=== PATIENT | female | born 1955 | race Caucasian/White ===

== ENCOUNTER 2016-10-23 08:15 | Outpatient (CLI) | payer OTHER ==
[2016-10-23 09:27] LABS: ALT (SGPT) 14 U/L (0-55); AST (SGOT) 18 U/L (5-34); Albumin 3.8 g/dL (3.5-5.0); Alkaline Phosphatase 77 U/L (40-150); Anion Gap 14 mmol/L (10-20); BUN (Urea Nitrogen) 12 mg/dL (9.8-20.1); Bilirubin, Total 0.6 mg/dL (0.2-1.2); Calc. Creatinine Clearance 0 mL/min (70-130); Calcium 9.1 mg/dL (7.8-10.44); Carbon Dioxide 27 mmol/L (22-29); Cardiac Risk 4.5 (Less than 4.5); Chloride 100 mmol/L (98-107); Cholesterol 262 mg/dL (< 200 Desired); Estimated GFR-MDRD 78; Globulin 3.4 g/dL (2.4-3.5); Glucose 97 mg/dL (70-105); HDL Cholesterol 58 mg/dL (>60 Neg Risk); LDL Cholesterol, Calculated 182 mg/dL; Potassium 3.5 mmol/L (3.5-5.1); Protein, Total 7.2 g/dL (6.0-8.3); Sodium 137 mmol/L (136-145); Triglycerides 112 mg/dL (Less than 150)
[2016-10-23 09:42] LABS: Free T4 (Free Thyroxine) 0.93 ng/dL (0.70-1.48); Thyroid Stimulating Hormone 0.772 uIU/mL (0.35-4.94)
== END 2016-10-23 08:16 | disposition home or self-care (01) ==
LOC: MADLABBHPM 08:15
PROVIDERS: ATTEND Family Medicine
DX: E78.5 Hyperlipidemia, unspecified (principal)
CPT/HCPCS: 36415; 80053; 80061; 84439; 84443

== ENCOUNTER 2016-11-06 09:35 | Emergency (ER) | payer OTHER ==
[2016-11-06 10:18] LABS: #Basophils 0.1 thou/uL (0.0-0.2); #Eosinphils 0.1 thou/uL (0.0-0.7); #Lymphocytes 2.3 thou/uL (1.20-3.40); #Monocytes 0.5 thou/uL (0.11-0.59); #Neutrophils 5.5 thou/uL (1.40-6.50); %Basophils 1.2 % (0.0-1.0); %Eosinophils 1.8 % (0.0-10.0); %Lymphocytes 26.8 % (21.0-51.0); %Monocytes 5.7 % (0.0-10.0); %Neutrophils 64.6 % (42.0-75.0); Hemoglobin 15.3 g/dL (12.0-16.0); Mean Corpuscular HGB CONC 33.7 g/dL (32.0-36.0); Mean Corpuscular Hemoglobin 33.6 pg (27.0-31.0); Mean Corpuscular Volume 99.9 fl (81.0-99.0); Mean Platelet Volume 9.6 fL (7.4-10.4); Platelet Count 266 thou/uL (130-400); RBC Distribution Width 12.5 % (11.5-14.5); Red Blood Cell (RBC) Count 4.56 mill/uL (4.20-5.40); White Blood Cell (WBC) Count 8.5 thou/uL (4.8-10.8)
[2016-11-06 10:33] LABS: ALT (SGPT) 12 U/L (0-55); AST (SGOT) 18 U/L (5-34); Albumin 4.1 g/dL (3.5-5.0); Alkaline Phosphatase 75 U/L (40-150); Anion Gap 14 mmol/L (10-20); BUN (Urea Nitrogen) 10 mg/dL (9.8-20.1); Bilirubin, Total 0.7 mg/dL (0.2-1.2); Calc. Creatinine Clearance 0 mL/min (70-130); Calcium 9.2 mg/dL (7.8-10.44); Carbon Dioxide 27 mmol/L (22-29); Chloride 103 mmol/L (98-107); Estimated GFR-MDRD 74; Globulin 3.3 g/dL (2.4-3.5); Glucose 97 mg/dL (70-105); Potassium 3.9 mmol/L (3.5-5.1); Protein, Total 7.4 g/dL (6.0-8.3); Sodium 140 mmol/L (136-145)
[2016-11-06 10:36] LABS: CKMB 1.2 ng/mL (0-6.6); Troponin I Less than 0.010 ng/mL (< 0.028)
[2016-11-06] MEDS ORDERED: Lisinopril 10 MG TAB ONE (11:21)
== END 2016-11-06 14:35 | disposition home or self-care (01) ==
LOC: MADERS 09:35
DX: I10 Essential (primary) hypertension (principal); E78.5 Hyperlipidemia, unspecified; K21.9 Gastro-esophageal reflux disease without esophagitis; F41.9 Anxiety disorder, unspecified; F32.9 Major depressive disorder, single episode, unspecified; Z79.899 Other long term (current) drug therapy
CPT/HCPCS: 36415; 80053; 82553; 84484; 85025; 93005

== ENCOUNTER 2016-11-10 10:01 | Outpatient (CLI) | payer OTHER ==
--- NOTE | 2016-11-10 12:35 | RAD ---
AP PELVIS: HISTORY: Fall. Hip and pelvic pain. FINDINGS/IMPRESSION: Degenerative changes are seen in the hip joints bilaterally. No definite fracture or dislocation is seen. If there is high clinical suspicion for a fracture, further evaluation with CT scan should be perfor med. POS: [facility]
--- NOTE | 2016-11-10 13:26 | RAD ---
RIGHT HIP TWO VIEWS CLINICAL HISTORY: Atraumatic pain. COMPARISON: Reference made to 01/21/2012. FINDINGS: Relatively stable osteoarthritis of the right hip present, without acute fracture or dislocation. IMPRESSION: No acute osseous abnormality of the right hip. Exam is stable from 01/21/2012. POS: [facility]
== END 2016-11-10 10:02 | disposition home or self-care (01) ==
LOC: MADRAD 10:01
PROVIDERS: ATTEND Family Medicine
DX: M25.551 Pain in right hip (principal)
CPT/HCPCS: 72170

== ENCOUNTER 2017-04-28 10:28 | Outpatient (CLI) | payer OTHER ==
[2017-04-28 10:59] LABS: #Basophils 0.1 thou/uL (0.0-0.2); #Eosinphils 0.2 thou/uL (0.0-0.7); #Lymphocytes 2.6 thou/uL (1.20-3.40); #Monocytes 0.6 thou/uL (0.11-0.59); #Neutrophils 4.2 thou/uL (1.40-6.50); %Basophils 1.4 % (0.0-1.0); %Eosinophils 2.5 % (0.0-10.0); %Lymphocytes 33.3 % (21.0-51.0); %Monocytes 7.7 % (0.0-10.0); %Neutrophils 55.1 % (42.0-75.0); Hemoglobin 15.7 g/dL (12.0-16.0); Mean Corpuscular HGB CONC 31.7 g/dL (32.0-36.0); Mean Corpuscular Hemoglobin 32.1 pg (27.0-31.0); Mean Corpuscular Volume 101.2 fl (81.0-99.0); Mean Platelet Volume 9.8 fL (7.4-10.4); Platelet Count 289 thou/uL (130-400); RBC Distribution Width 12.9 % (11.5-14.5); Red Blood Cell (RBC) Count 4.88 mill/uL (4.20-5.40); White Blood Cell (WBC) Count 7.7 thou/uL (4.8-10.8)
[2017-04-28 11:06] LABS: Hemoglobin A1c 4.9 % (4.0-6.0)
[2017-04-28 11:17] LABS: ALT (SGPT) 12 U/L (8-55); AST (SGOT) 16 U/L (5-34); Alkaline Phosphatase 79 U/L (40-150); Anion Gap 14 mmol/L (10-20); BUN (Urea Nitrogen) 15 mg/dL (9.8-20.1); Bilirubin, Total 0.4 mg/dL (0.2-1.2); Calc. Creatinine Clearance 0 mL/min (70-130); Calcium 9.4 mg/dL (7.8-10.44); Carbon Dioxide 29 mmol/L (22-29); Chloride 102 mmol/L (98-107); Estimated GFR-MDRD 68; Globulin 3.9 g/dL (2.4-3.5); Glucose 80 mg/dL (70-105); Potassium 3.6 mmol/L (3.5-5.1); Protein, Total 7.9 g/dL (6.0-8.3); Sodium 141 mmol/L (136-145)
[2017-04-28 11:37] LABS: Free T4 (Free Thyroxine) 0.94 ng/dL (0.70-1.48); Thyroid Stimulating Hormone 0.8205 uIU/mL (0.35-4.94)
== END 2017-04-28 10:29 | disposition home or self-care (01) ==
LOC: MADLABBHPM 10:28
PROVIDERS: ATTEND Family Medicine
DX: R53.82 Chronic fatigue, unspecified (principal)
CPT/HCPCS: 36415; 80053; 83036; 84439; 84443; 85025

== ENCOUNTER 2017-12-01 12:10 | Emergency (ER) | payer OTHER ==
[~2017-12-01 12:10] MED LIST: Iopamidol 370 76% 125 ML VIAL FS ONE
[2017-12-01] MEDS ORDERED: methylPREDNISolone Sod Succ/PF 125 MG/2 ML VIAL ONE (12:27)
[2017-12-01] MEDS ORDERED: cefTRIAXone\\ROCEPHIN 2 GM VIAL ONE (12:27)
[2017-12-01 12:40] LABS: #Basophils 0.1 thou/uL (0.0-0.2); #Eosinphils 0.1 thou/uL (0.0-0.7); #Lymphocytes 2.2 thou/uL (1.20-3.40); #Monocytes 0.6 thou/uL (0.11-0.59); %Basophils 1.1 % (0.0-1.0); %Eosinophils 0.7 % (0.0-10.0); %Lymphocytes 24.9 % (21.0-51.0); %Monocytes 6.3 % (0.0-10.0); Hemoglobin 16.1 g/dL (12.0-16.0); Mean Corpuscular HGB CONC 33.1 g/dL (32.0-36.0); Mean Corpuscular Hemoglobin 31.2 pg (27.0-31.0); Platelet Count 290 thou/uL (130-400); RBC Distribution Width 12.4 % (11.5-14.5); Red Blood Cell (RBC) Count 5.18 mill/uL (4.20-5.40)
--- NOTE | 2017-12-01 12:49 | RAD ---
PORTABLE CHEST: History: Dyspnea. Comparison: 06-28-16 FINDINGS: Heart size is within normal limits with atherosclerotic change of the aorta. The lungs are clear of i nfiltrative process. IMPRESSION: No active intrathoracic disease. POS: [facility]
[2017-12-01 12:55] LABS: ALT (SGPT) 15 U/L (8-55); AST (SGOT) 16 U/L (5-34); Albumin 4.4 g/dL (3.4-4.8); Alkaline Phosphatase 76 U/L (40-150); Anion Gap 20 mmol/L (10-20); BUN (Urea Nitrogen) 12 mg/dL (9.8-20.1); Bilirubin, Total 0.6 mg/dL (0.2-1.2); CK (CPK) 48 U/L (29-168); Calc. Creatinine Clearance 0 mL/min (70-130); Calcium 9.5 mg/dL (7.8-10.44); Carbon Dioxide 28 mmol/L (23-31); Chloride 97 mmol/L (98-107); Estimated GFR-MDRD 71; Glucose 95 mg/dL (80-115); Potassium 3.5 mmol/L (3.5-5.1); Protein, Total 8.4 g/dL (6.0-8.3); Sodium 141 mmol/L (136-145)
[2017-12-01 12:56] LABS: CKMB 0.8 ng/mL (0-6.6); Troponin I Less than 0.010 ng/mL (< 0.028)
[2017-12-01 13:06] LABS: INR-International Normal Ratio 1.1; PTT 33.2 SEC (22.9-36.1); Prothrombin Time 14.3 SEC (12.0-14.7)
[2017-12-01 13:10] LABS: D-Dimer Test Less than 0.27 *mcg/mL (0.27-0.43)
[2017-12-01 13:34] LABS: Actual Bicarbonate (HCO3v) 31 mEq/L (24-30); Base Excess 5.5 mEq/L (-2 - +2)
[2017-12-01 13:37] LABS: pH (venous) 7.42 (7.35-7.45)
--- NOTE | 2017-12-01 13:44 | CT ---
CT PULMONARY ANGIOGRAM WITH IV CONTRAST AND 3D POSTPROCESSING: Date: 12/01/17 HISTORY: Dyspnea. FINDINGS: There is good contrast opacification of the pulmonary arterial vasculature without filling defects to suggest pulmonary embolism. The thoracic aorta is well opacified without aneurysm or dissection. No pleural or pericardial effusions are seen. There is patchy consolidation in the posterior segment of the right upper lobe. There are degenerative changes in the spine. There is enlargement of the adrena l glands, left greater than right. A tiny low density lesion is noted in the liver. IMPRESSION: 1. No CT evidence of pulmonary embolism or thoracic aortic dissection. 2. Findings suspicious for right upper lobe pneumonia. A follow-up CT scan after a course of antibio tics is recommended. A dedicated CT scan of the abdomen to evaluate the adrenal glands would also be helpful at the same time. POS: [facility]
[2017-12-01] MEDS ORDERED: Azithromycin 500 MG VIAL ONE (14:27)
== END 2017-12-01 15:07 | disposition short-term general hospital (02) ==
LOC: MADERS 12:10
DX: J18.9 Pneumonia, unspecified organism (principal); R09.02 Hypoxemia; E78.5 Hyperlipidemia, unspecified; F41.9 Anxiety disorder, unspecified; F32.9 Major depressive disorder, single episode, unspecified; F17.210 Nicotine dependence, cigarettes, uncomplicated; I10 Essential (primary) hypertension; K21.9 Gastro-esophageal reflux disease without esophagitis; Z79.899 Other long term (current) drug therapy
CPT/HCPCS: 71045; 71275; 80053; 82550; 82553; 82805; 83880; 84484; 85025; 85379; 85610; 85730; 87040; 93005; 94760; 96374; 96375; 99406; J0456; J0696; J2930; J7620

== ENCOUNTER 2017-12-31 15:37 | Outpatient (CLI) | payer OTHER ==
--- NOTE | 2017-12-31 15:56 | RAD ---
PA AND LATERAL CHEST: Date: 12/31/17 HISTORY: COPD. COMPARISON: 12/01/17 CT angio of chest and 12/01/17 plain film examination. FINDINGS: Heart size is within normal limits. There are atherosclerotic changes of the aorta. There is some min imal parenchymal change in the right base overlying the right hemidiaphragm suggesting of some atelec tasis. It is difficult to definitely appreciate the changes which I believe are actually seen more in the lateral segment of the right middle lobe. There is only some vague increased density in this are a. IMPRESSION: Atelectatic appearing changes in the right lower lobe. There is some vague increased density in the r ight mid to lower lung field which corresponds to the abnormality which appears to be more of a later al segment right middle lobe finding on the previous CT. Changes are felt to be improved as compared to that exam. POS: [facility]
== END 2017-12-31 15:38 | disposition home or self-care (01) ==
LOC: MADRAD 15:37
PROVIDERS: ATTEND Family Medicine
DX: J96.21 Acute and chronic respiratory failure with hypoxia (principal); J44.9 Chronic obstructive pulmonary disease, unspecified; J18.1 Lobar pneumonia, unspecified organism
CPT/HCPCS: 71046

== ENCOUNTER 2018-01-01 11:06 | Outpatient (CLI) | payer OTHER | END 2018-01-01 11:07 | disposition home or self-care (01) | LOC: MADLABBHPM 11:06 | PROVIDERS: ATTEND Family Medicine | DX: J96.21 Acute and chronic respiratory failure with hypoxia (principal); J18.9 Pneumonia, unspecified organism | CPT/HCPCS: 36415; 82565; 84520 ==

== ENCOUNTER 2018-01-04 09:59 | Outpatient (CLI) | payer OTHER ==
[2018-01-04] MEDS ORDERED: Iopamidol 370 76% 100 ML VIAL ONE (10:58)
--- NOTE | 2018-01-04 12:45 | CT ---
CT OF CHEST PERFORMED WITH INTRAVENOUS CONTRAST ENHANCEMENT: HISTORY: Followup of right-sided pneumonia. COMPARISON: A plain film examination of 12/31/[address] study of 12/01/17. FINDINGS: The infiltrative changes involving the lateral segment of the right middle lobe have almost completel y resolved. Some minimal linear change within the right lower lobe which probably represents some at electasis or scar. The left lung is clear. There is no significant mediastinal or hilar adenopathy. There are atherosclerotic changes of the ao rta. Visualized liver parenchyma shows a tiny hypodensity within the right lobe, stable, possibly a small cyst. There is a hyperplastic appearance to the adrenal glands, particularly the left. This was pre sent on the prior study. Partially visualized hypodensities involving both kidneys are most likely c ysts. IMPRESSION: Resolving pneumonia within the right lung base. No suspicious features other than what is probably s ome residual scar. Other incidental findings as noted above. POS: [facility]
== END 2018-01-04 10:00 | disposition home or self-care (01) ==
LOC: MADLABBHPM 09:59
PROVIDERS: ATTEND Family Medicine
DX: J96.21 Acute and chronic respiratory failure with hypoxia (principal); J18.1 Lobar pneumonia, unspecified organism; J44.9 Chronic obstructive pulmonary disease, unspecified; E27.9 Disorder of adrenal gland, unspecified
CPT/HCPCS: 71260; 74160